=== PATIENT | male | born 1955 ===

== ENCOUNTER 2019-08-27 07:15 | Inpatient (IN) | payer OTHER ==
[~2019-08-27] VITALS: Ht 170.2 cm; Wt 86.2 kg
[2019-08-27] MEDS ORDERED: CARVEDILOL25 M1 PO (11:01)
[2019-08-27] MEDS ORDERED: GLIPIZIDE XL10 MG PO (11:02)
[2019-08-27] MEDS ORDERED: JANUVIA100 MG PO (11:02)
[2019-08-27] MEDS ORDERED: AMLODIPINE-OLM1 EACH PO (11:03)
[2019-08-27] MEDS ORDERED: COZAAR100 MG PO (11:03)
[2019-08-27] MEDS ORDERED: LANTUS SUBCUTANEO (11:04)
[2019-08-27] MEDS ORDERED: HYDROCHLOROTHIA25 MG PO (11:04)
[2019-09-03] MEDS ORDERED: OXYC1TAB9 PO (14:32)
[2019-09-03] MEDS ORDERED: INTESTINEX680 M1 PO (14:33)
== END 2019-09-03 15:47 | disposition home or self-care (01) | DRG 331 ==
LOC: O/R 08-31 07:15 → SURH 08-31 07:15 → O/R 08-31 08:32 → SURH 08-31 12:15
PROVIDERS: ADMIT Surgery; ATTEND Surgery
PROC: 07TC4ZZ Resection of Pelvis Lymphatic, Percutaneous Endoscopic Approach (ICD-10-PCS; 2019-08-31)
PROC: 0DJD8ZZ Inspection of Lower Intestinal Tract, Via Natural or Artificial Opening Endoscopic (ICD-10-PCS; 2019-08-31)
PROC: 0DTN4ZZ Resection of Sigmoid Colon, Percutaneous Endoscopic Approach (ICD-10-PCS; principal; 2019-08-31 12:15)
DX: C19 Malignant neoplasm of rectosigmoid junction (principal); E13.9 Other specified diabetes mellitus without complications; I10 Essential (primary) hypertension; D36.0 Benign neoplasm of lymph nodes